=== PATIENT | female | born 1950 | race Caucasian/White ===

== ENCOUNTER → 2016-08-28 | Outpatient (CLI) | payer OTHER, MEDICARE ==
[~2016-08-28] MED LIST: ALBUTEROL0.09 MG/A2 INH; ASPIR-LOW81 MG PO; ASPIRIN325 M2 PO; AVALIDE 12.5 MG1 TA2 PO; B12,B-12,B 12500 MC1 PO; CELEBREX100 MG PO; CELEBREX200 MG PO; CELECOXIB200 M1 PO; CELEXA10 MG PO; CELEXA40 MG PO; CHLORTHALIDONE25 MG PO; COZAAR100 MG PO; COZAAR50 MG PO; DETROL LA4 MG PO; DUONEB 3 MG/3 ML3 M1 NEB; ECOTRIN325 MG PO; EFFEXOR XR150 M1 PO; EFFEXOR XR75 MG PO; FLOVENT 220 M220 MCG INH; LEVAQUIN750 MG PO; LOVASTATIN20 MG PO; LOVASTATIN40 MG PO; LOVENOX40 MG/0.4 SC; MEVACOR PO; NEURONTIN300 MG PO; NITROSTAT0.3 MG SL; NORVASC5 MG PO; PERCOCET 325 MG1 TA8 PO; PRAVASTATIN SOD20 MG PO; PREDNISONE10 MG PO; PREVACID30 M1 PO; PRILOSEC20 M1 PO; PRILOSEC20 MG PO; PROAIR HFA0.09 MG/AC IH; SINGULAIR10 MG PO; SYNTHROID,LEVO75 MCG PO; SYNTHROID0.075 MG PO; TYLENOL325 M1 PO; VENTOLIN0.09 MG/AC INH; VICODIN 5/500 505 MG PO; VICODIN ES 7501 TAB PO; XANAX0.5 MG PO
== END | disposition home or self-care (01) ==
LOC: CARD 02:57
DX: I20.8 Other forms of angina pectoris (principal); R53.81 Other malaise

== ENCOUNTER → 2016-09-07 | Outpatient (CLI) | payer OTHER, MEDICARE ==
[2016-09-07 14:23] LABS: ALBUMIN 3.5 gm/dl (3.1-4.5); ALKALINE PHOSPHATASE 127 U/L (45-117); BASO # 0.1 10*3/uL (0.0-0.1); BASO % 0.9 % (0.0-1.0); BILIRUBIN, TOTAL 0.6 mg/dl (0.2-1.0); BUN 7 mg/dl (7-24); CARBON DIOXIDE 29 mmol/L (21-32); CHLORIDE 106 mmol/L (98-107); EOS # 0.2 10*3/uL (0.0-0.4); EST GLOM FILT AFRICAN AMERICAN > 60 ml/min; GLUCOSE 106 mg/dL (65-99); HEMATOCRIT 43.8 % (37.0-47.0); HEMOGLOBIN 14.5 g/dl (12.0-16.0); LYMPH # 1.5 10*3/uL (1.3-4.4); LYMPH % 21.7 % (27.0-41.0); MEAN CELL VOLUME 85.4 fl (81.0-99.0); MEAN CORPUSCULAR HGB 28.3 pg (27.0-31.0); MEAN CORPUSCULAR HGB CONC 33.1 g/dl (33.0-37.0); MEAN PLATELET VOLUME 9.4 fl (9.6-12.3); MONO # 0.4 10*3/uL (0.1-1.0); MONO % 6.4 % (3.0-9.0); NEUT # 4.6 10*3/uL (2.3-7.9); NEUT % 67.6 % (47.0-73.0); PLATELET COUNT AUTOMATED 269 10*3/uL (130-400); RED BLOOD COUNT 5.13 10*6/uL (4.10-5.10); RED CELL DISTRI WIDTH 14.1 % (0-14.5); SGOT/AST 15 IU/L (3-35); SGPT/ALT 22 U/L (12-78); SODIUM 142 mmol/L (136-145); TOTAL PROTEIN 7.1 gm/dL (6.4-8.2); WHITE BLOOD COUNT 6.8 10*3/uL (4.8-10.8)
== END | disposition home or self-care (01) ==
LOC: LAB 13:23
PROVIDERS: Internal Medicine
DX: A09 Infectious gastroenteritis and colitis, unspecified (principal); R19.7 Diarrhea, unspecified; R11.2 Nausea with vomiting, unspecified; M47.896 Other spondylosis, lumbar region; Z90.49 Acquired absence of other specified parts of digestive tract

== ENCOUNTER → 2016-09-09 | Outpatient (CLI) | payer OTHER, MEDICARE | END | disposition home or self-care (01) | LOC: LAB 15:58 | DX: A09 Infectious gastroenteritis and colitis, unspecified (principal) ==

== ENCOUNTER 2016-10-18 15:03 | Emergency (ER) | payer OTHER, MEDICARE ==
[~2016-10-18] VITALS: Ht 152.4 cm; Wt 106.6 kg
[2016-10-18] MEDS ORDERED: NAPROSYN500 MG PO (17:39)
== END 2016-10-18 21:47 | disposition home or self-care (01) ==
LOC: ED 15:03
DX: M19.042 Primary osteoarthritis, left hand (principal); J44.9 Chronic obstructive pulmonary disease, unspecified; K21.9 Gastro-esophageal reflux disease without esophagitis; I10 Essential (primary) hypertension; I25.2 Old myocardial infarction; M48.06 Spinal stenosis, lumbar region; Z90.710 Acquired absence of both cervix and uterus; Z90.49 Acquired absence of other specified parts of digestive tract; Z86.73 Personal history of transient ischemic attack (TIA), and cerebral infarction without residual deficits; Z98.890 Other specified postprocedural states; Z79.899 Other long term (current) drug therapy; Z91.041 Radiographic dye allergy status

== ENCOUNTER → 2016-11-05 | Outpatient (CLI) | payer OTHER, MEDICARE ==
[~2016-11-05] MED LIST changes: +NAPROSYN500 MG PO
== END | disposition home or self-care (01) ==
LOC: ORTHO 01:52
DX: M47.892 Other spondylosis, cervical region (principal); M48.02 Spinal stenosis, cervical region; M19.022 Primary osteoarthritis, left elbow; M77.9 Enthesopathy, unspecified

== ENCOUNTER → 2016-11-15 | Outpatient (CLI) | payer OTHER, MEDICARE | END | disposition home or self-care (01) | LOC: MRI 12:33 | DX: G56.22 Lesion of ulnar nerve, left upper limb (principal); M25.722 Osteophyte, left elbow; M67.922 Unspecified disorder of synovium and tendon, left upper arm ==

== ENCOUNTER → 2016-11-23 | Outpatient (CLI) | payer OTHER, MEDICARE ==
[2016-11-23 13:02] LABS: BASO # 0.1 10*3/uL (0.0-0.1); BASO % 0.9 % (0.0-1.0); EOS # 0.3 10*3/uL (0.0-0.4); EOS % 4.1 % (1.0-4.0); HEMATOCRIT 41.7 % (37.0-47.0); HEMOGLOBIN 13.5 g/dl (12.0-16.0); LYMPH # 1.9 10*3/uL (1.3-4.4); LYMPH % 27.6 % (27.0-41.0); MEAN CELL VOLUME 85.6 fl (81.0-99.0); MEAN CORPUSCULAR HGB 27.7 pg (27.0-31.0); MEAN CORPUSCULAR HGB CONC 32.4 g/dl (33.0-37.0); MONO # 0.4 10*3/uL (0.1-1.0); MONO % 6.4 % (3.0-9.0); NEUT # 4.2 10*3/uL (2.3-7.9); NEUT % 60.7 % (47.0-73.0); PLATELET COUNT AUTOMATED 214 10*3/uL (130-400); RED BLOOD COUNT 4.87 10*6/uL (4.10-5.10); RED CELL DISTRI WIDTH 14.5 % (0-14.5); WHITE BLOOD COUNT 6.9 10*3/uL (4.8-10.8)
[2016-11-23 13:26] LABS: BILIRUBIN NEGATIVE (NEGATIVE); BLOOD NEGATIVE (NEGATIVE); CLARITY CLEAR (CLEAR); COLOR YELLOW (YELLOW); GLUCOSE NEGATIVE (NEGATIVE); KETONE NEGATIVE (NEGATIVE); LEUKO ESTERASE NEGATIVE (NEGATIVE); NITRITE NEGATIVE (NEGATIVE); PH 6.5 (5.0-9.0); PROTEIN NEGATIVE (NEGATIVE); SPECIFIC GRAVITY <= 1.005 (1.005-1.030); UROBILINOGEN 0.2 E.U./dl (0.2-1.0)
[2016-11-23 13:30] LABS: BUN 10 mg/dl (7-24); CARBON DIOXIDE 28 mmol/L (21-32); CHLORIDE 103 mmol/L (98-107); EST GLOM FILT AFRICAN AMERICAN > 60 ml/min; GLUCOSE 86 mg/dL (65-99); POTASSIUM 3.6 mmol/L (3.5-5.1); SODIUM 141 mmol/L (136-145)
[2016-11-23 14:15] LABS: BACTERIA 1+
[2016-11-23 14:16] LABS: YEAST 1+
== END | disposition home or self-care (01) ==
LOC: LAB 10:47
PROVIDERS: Orthopaedic Surgery
DX: Z01.818 Encounter for other preprocedural examination (principal); G56.02 Carpal tunnel syndrome, left upper limb; J45.909 Unspecified asthma, uncomplicated; J44.9 Chronic obstructive pulmonary disease, unspecified

== ENCOUNTER → 2016-11-28 | Outpatient (CLI) | payer OTHER, MEDICARE ==
[~2016-11-28] MED LIST changes: +PERCOCET 325 MG1 TA6 PO; +ZOFRAN4 MG PO
== END | disposition home or self-care (01) ==
LOC: MRI 11-27 14:49
DX: M47.812 Spondylosis without myelopathy or radiculopathy, cervical region (principal); M48.03 Spinal stenosis, cervicothoracic region; M50.223 Other cervical disc displacement at C6-C7 level; M53.82 Other specified dorsopathies, cervical region; M25.78 Osteophyte, vertebrae

== ENCOUNTER → 2016-11-29 | Day surgery (SDC) | payer OTHER, MEDICARE ==
[2016-11-29] VITALS (19 sets, daily range): BP systolic 95–174; BP diastolic 56–98
[~2016-11-29] VITALS: Ht 152.4 cm; Wt 106.6 kg
== END | disposition home or self-care (01) ==
LOC: SDC 11-23 12:30
DX: G56.22 Lesion of ulnar nerve, left upper limb (principal); E03.9 Hypothyroidism, unspecified; I10 Essential (primary) hypertension; E78.5 Hyperlipidemia, unspecified; K21.9 Gastro-esophageal reflux disease without esophagitis; Z88.8 Allergy status to other drugs, medicaments and biological substances; M19.90 Unspecified osteoarthritis, unspecified site; Z86.73 Personal history of transient ischemic attack (TIA), and cerebral infarction without residual deficits; I25.10 Atherosclerotic heart disease of native coronary artery without angina pectoris; I25.2 Old myocardial infarction; F32.9 Major depressive disorder, single episode, unspecified; Z90.710 Acquired absence of both cervix and uterus; Z96.653 Presence of artificial knee joint, bilateral; Z98.890 Other specified postprocedural states; Z79.899 Other long term (current) drug therapy; G47.30 Sleep apnea, unspecified; J44.9 Chronic obstructive pulmonary disease, unspecified; Z82.49 Family history of ischemic heart disease and other diseases of the circulatory system

== ENCOUNTER → 2017-02-18 | Outpatient (CLI) | payer OTHER | END | disposition home or self-care (01) | LOC: ORTHO 10:06 | DX: M25.462 Effusion, left knee (principal); M25.461 Effusion, right knee; M19.042 Primary osteoarthritis, left hand; M77.02 Medial epicondylitis, left elbow; M81.0 Age-related osteoporosis without current pathological fracture; Z96.651 Presence of right artificial knee joint; Z96.652 Presence of left artificial knee joint ==

== ENCOUNTER → 2017-02-21 | Outpatient (CLI) | payer OTHER ==
[2017-02-21 12:29] LABS: BASO # 0.1 10*3/uL (0.0-0.1); BASO % 1.1 % (0.0-1.0); EOS # 0.3 10*3/uL (0.0-0.4); EOS % 3.8 % (1.0-4.0); HEMATOCRIT 42.5 % (37.0-47.0); HEMOGLOBIN 14.1 g/dl (12.0-16.0); LYMPH # 1.8 10*3/uL (1.3-4.4); LYMPH % 27.4 % (27.0-41.0); MEAN CORPUSCULAR HGB 28.5 pg (27.0-31.0); MEAN CORPUSCULAR HGB CONC 33.2 g/dl (33.0-37.0); MEAN PLATELET VOLUME 9.3 fl (9.6-12.3); MONO # 0.4 10*3/uL (0.1-1.0); MONO % 6.2 % (3.0-9.0); PLATELET COUNT AUTOMATED 267 10*3/uL (130-400); RED BLOOD COUNT 4.94 10*6/uL (4.10-5.10); RED CELL DISTRI WIDTH 13.5 % (0-14.5); WHITE BLOOD COUNT 6.5 10*3/uL (4.8-10.8)
[2017-02-21 12:56] LABS: ALBUMIN 3.5 gm/dl (3.1-4.5); ALKALINE PHOSPHATASE 115 U/L (45-117); BUN 10 mg/dl (7-24); CHLORIDE 104 mmol/L (98-107); CHOLESTEROL 186 mg/dL (<200); HDL CHOLESTEROL 51 mg/dl (40-60); LDL CHOLESTEROL 87 mg/dL (9-159); SGOT/AST 10 IU/L (3-35); SGPT/ALT 14 U/L (12-78); SODIUM 140 mmol/L (136-145); TOTAL PROTEIN 7.2 gm/dL (6.4-8.2); TRIGLYCERIDES 239 mg/dl (<150); VLDL CHOLESTEROL 48 mg/dL (6-40)
[2017-02-21 13:19] LABS: FREE T4 0.79 ng/dl (0.76-1.46)
== END | disposition home or self-care (01) ==
LOC: LAB 12:10
PROVIDERS: Internal Medicine
DX: N18.3 Chronic kidney disease, stage 3 (moderate) (principal); E03.9 Hypothyroidism, unspecified; E78.2 Mixed hyperlipidemia

== ENCOUNTER → 2017-02-28 | Outpatient (CLI) | payer OTHER ==
--- NOTE | ~2017-02-28 | PROC NOTE ---
[place], [place] PROCEDURE NOTE NAME: DANIEL HEALY UNIT #: [id number] ROOM: DOCTOR: JULISA DODD BIRTHDATE: [birth year] DOS: 02/28/2017 MODIFIED BARIUM SWALLOW DOCTOR: Dr. Jeffrey. RADIOLOGIST: Dr. Harris. BACKGROUND INFORMATION: The patient is a 66-year-old female was seen for modified barium swallow. This test was ordered to rule out aspiration. The patient reports that over the past couple of months, she has been choking with liquids mostly, but foods as well. She reports a history of CVAs. She also stated that she feels that she suffered a recent TIA due to right-sided weakness and numbness. Medical history is also significant for HTN and COPD. The patient currently receives a regular diet and thin liquids. She reported respiratory status as with normal limits on this date. She did report that she uses BiPAP at night. For today's assessment, she was alert and able to follow all commands. Oral peripheral examination revealed presence of upper denture. The patient reported it being loose fitting and stated that she was wearing denture cream. Lingual, labial and buccal skills were within normal limits in terms of strength, range of motion and coordination. The patient was able to volitionally cough and swallow without difficulty. METHODS AND MATERIALS USED FOR THE EXAM: The patient was positioned in the lateral plane and examination was viewed under fluoroscopy. The patient was presented with a variety of consistencies to assess swallowing skills including applesauce mixed with barium presented in half teaspoon amounts, barium-coated cookie presented in bite-size piece and thin liquid barium taken both by cup and straw. The patient swallowed in single sip-size amount. ORAL PHASE: Unremarkable. PHARYNGEAL PHASE: The pharyngeal swallow occurred within a timely manner. During the swallow, laryngeal elevation and epiglottic function were adequate. There was no residue in the pharynx post-swallow. When patient consumed thin liquids by straw, there was an incidence of mild transient upper airway penetration that occurred by straw only. No aspiration occurred with any consistency. ESOPHAGEAL PHASE: This phase of the swallow was not formally assessed during this examination. IMPRESSIONS AND RECOMMENDATIONS: Based upon assessment results, this 66-year-old patient presents with swallowing skills that are within functional limits. She was able to tolerate pureed solid and thin liquids. When she consumed thin liquid by straw, there was an incidence of mild transient upper airway penetration occurring. No aspiration occurred with any consistency. Recommend the patient remain on current diet with use of universal safe swallow precautions such as upright positioning during meals, small bites and sips, chewing thoroughly and alternating liquids and solids. Also recommend [place], [place] PROCEDURE NOTE NAME: DANIEL HEALY UNIT #: [id number] ROOM: DOCTOR: JULISA DODD BIRTHDATE: [birth year] single sips when drinking liquid by straw. Follow up therapy is not warranted at this time. The patient was educated on results and recommendations and verbalized understanding. Thank you very much for this referral. Should you have any questions regarding this patient, please contact the speech pathologist at [phone]. JULISA DODD CM:PROCNOTE:PROCEDURE NOTE [id number] JULISA DODD
--- NOTE | ~2017-02-28 | SLPPN ---
[place], [place] CHOIR TEACHER PROGRESS NOTE NAME: DANIEL HEALY UNIT #: [id number] ROOM: DOCTOR: JOHN SEGURA,VIOLET Speech Language Pathology Treatment Note Page 1 1 of Patient Name: DANIEL HEALY Date: 02/28/2017 10:42 AM : 1950 SOC Date: 02/28/2017 [facility] Provider #: [id number] Treating Clinician: CASSIE Hatfield-STANTON Referring Physician: VIOLET LOPEZ Onset Date Description Code Primary Diagnosis: 02/28/2017 R13.10 Dysphagia, unspecified Time In: 09:30 AM Time Out: 10:30 AM CHOIR TEACHER Interventions and CPT Codes Consisted of: CPT Code Modifiers Minutes Units MOTION FLUOROSCOPY/SWALLOW 85641 60 1 Total Minutes: 60 Total Timed Minutes: 0 Total Untimed Minutes: 60 Total Units: 1 Total Timed Units: 0 Total Untimed Units: 1 02/28/2017 10:43:33 AM KHURRAM Hatfield Date/Time State License #: [id number] CM:STANTONPN 1051 1051 [facility]
--- NOTE | ~2017-02-28 | SLPIE ---
[place], [place] COMMERCIAL ESCROW OFFICER INITIAL EVALUATION NAME: DANIEL HEALY UNIT #: [id number] ROOM: DOCTOR: VIOLET LOPEZ MD Speech Language Pathology Initial Evaluation Page 1 1 of Patient Name: DANIEL HEALY Date: 02/28/2017 10:41 AM : 1950 SOC Date: 02/28/2017 Provider: [facility] Provider #: [id number] Treating Clinician: CASSIE Hatfield-STANTON Referring Physician: VIOLET LOPEZ Patient Information Address: [address] [place] [address] Physician: VIOLET LOPEZ Physician #: City, [facility], Zip: [place], [place] [address] Occupation: Unknown # of Approved Visits: 0 Gender: Female [employer] Truck Driver: KAYDEN RYAN Medicare #: [id number] Rehabilitation Information / History Onset Date Code Description Primary Diagnosis: 02/28/2017 R13.10 Dysphagia, unspecified Subjective Comments: Initial evaluation created to initiate the electronic medical record. Please see [facility] for details. Clinical Findings Functional Goals Functional Limitation Reporting Swallowing G8996 - Swallowing functional limitation, current status at therapy episode outset and at reporting intervals Current Status: CI - At least 1 percent but less than 20 percent impaired, limited or restricted G8997 - Swallowing functional limitation, projected goal status, at therapy episode outset, at reporting intervals, and at discharge or to end reporting Goal Status: CI - At least 1 percent but less than 20 percent impaired, limited or restricted G8998 - Swallowing functional limitation, discharge status, at discharge from therapy or to end reporting Discharge Status: CI - At least 1 percent but less than 20 percent impaired, limited or restricted 02/28/2017 10:42:42 AM CASSIE Hatfield-STANTON Date/Time [place], [place] COMMERCIAL ES[employer]OW OFFICER INITIAL EVALUATION NAME: DANIEL HEALY UNIT #: [id number] ROOM: DOCTOR: VIOLET LOPEZ MD [facility] License #: [id number] CM:CATY 44 [facility]
--- NOTE | ~2017-02-28 | SLPPOC ---
[place], [place] CERTIFIED GENETIC COUNSELOR PLAN OF CARE NAME: DANIEL HEALY UNIT #: [id number] ROOM: DOCTOR: VIOLET LOPEZ MD Speech Language Pathology Plan of Care Page 1 1 (Initial Evaluation) of Patient Name: DANIEL HEALY Date: 02/28/2017 10:41 AM : 1950 SOC Date: 02/28/2017 Provider[facility] Provider #: [id number] Treating Clinician: CASSIE Hatfield-CERTIFIED GENETIC COUNSELOR Referring Physician: VIOLET LOPEZ Medicare #: [id number] Visits From SOC: 1 Onset Date Description Code Primary Diagnosis: 02/28/2017 R13.10 Dysphagia, unspecified Subjective Comments: Initial evaluation created to initiate the electronic medical record. Please see [facility] for details. Initial Level Goals Functional Limitation Reporting Swallowing G8996 - Swallowing functional limitation, current status at therapy episode outset and at reporting intervals Current Status: CI - At least 1 percent but less than 20 percent impaired, limited or restricted G8997 - Swallowing functional limitation, projected goal status, at therapy episode outset, at reporting intervals, and at discharge or to end reporting Goal Status: CI - At least 1 percent but less than 20 percent impaired, limited or restricted G8998 - Swallowing functional limitation, discharge status, at discharge from therapy or to end reporting Discharge Status: CI - At least 1 percent but less than 20 percent impaired, limited or restricted 02/28/2017 10:42:42 AM VIOLET LOPEZ Date/Time CASSIE Hatfield-STANTON Date I certify the need for these services furnished under this plan of treatment while under my care. State License #: [id number] CM:SLPPOC 1045 1045 [facility]
--- NOTE | 2017-02-28 10:30 | NUR ---
SPEECH PATHOLOGY Outpatient MBS completed as per orders. Patient was alert and cooperative and reported choking with mostly liquids but foods at times. She stated that this has been occurring for the past couple months. Patient reports a hx of CVAs and stated that she feels she may have suffered a recent TIA due to weakness and numbness on right side. Patient was challenged with puree, solid and thin liquids which were taken by cup and straw. Patient tolerated food and liquids well. When drinking by straw, a mild amount of transient upper airway penetration occurred. No aspiration occurred with this or any other consistency during this exam. Recommend patient remain on current diet with use of universal safe swallow precautions such as upright positioning during meals, small bites/sips, chewing thoroughly and alternating liquid and solid. Also recommend small single sips when drinking liquid by straw. Patient verbalized understanding and agreement of all information provided. Follow up therapy is not warranted at this time. Dictated report to follow. Thank you for this referral. JULISA DODD MS CCC-[employer] D[employer]ICATED TRUCK DRIVER
== END | disposition home or self-care (01) ==
LOC: RAD/SH 09:56
DX: R13.10 Dysphagia, unspecified (principal); I10 Essential (primary) hypertension; J44.9 Chronic obstructive pulmonary disease, unspecified

== ENCOUNTER → 2017-07-12 | Day surgery (SDC) | payer OTHER ==
[~2017-07-12] VITALS: Ht 152.4 cm; Wt 98.0 kg
[~2017-07-12] MED LIST changes: +FENOFIBRATE48 M1 PO; +PROZAC20 MG PO; +SYNTHROID,LEVO88 MCG PO; -SYNTHROID0.075 MG PO
--- NOTE | ~2017-07-12 | PROC NOTE ---
[place], [place] PROCEDURE NOTE NAME: DANIEL HEALY UNIT #: [id number] ROOM: DOCTOR: GIDEON LOPEZ MD BIRTHDATE: [birth year] DOS: 07/12/2017 PREOPERATIVE DIAGNOSES: Abdominal pain, diarrhea. POSTOPERATIVE DIAGNOSIS: Normal colon. PROCEDURE: Colonoscopy. ENDOSCOPIST: Gideon Lopez MD MUSIC REHABILITATION THERAPIST: LUIS FELIPE. ANESTHESIA: MAC. INDICATIONS: This is a 66-year-old lady comes in today for a colonoscopy as a workup for abdominal pain and diarrhea. The procedure and its complications were explained to the patient in detail preoperatively. Complications that were discussed included but were not limited to, bleeding, colon perforation, missed lesions, prolonged pain. She agreed to proceed. DESCRIPTION OF PROCEDURE: After identifying the patient, the patient was brought to the operating suite and laid in the left lateral position. After time-out procedure was called, a digital rectal exam was performed, which was within normal limits. An adult colonoscope was now introduced into the anal canal and advanced sequentially into the rectum, sigmoid colon, descending colon, transverse colon and ascending colon up to the cecum. The prep was found to be within normal limits. Upon reaching the cecum, the scope was withdrawn. Total withdrawal time was approximately 6 minutes and 30 seconds. There were no obvious colonic lesions seen. Upon reaching the rectum, the scope was retroflexed and uncomplicated internal hemorrhoids were encountered. The scope was then withdrawn and the patient was taken to the recovery room in stable fashion. Based on these findings, the patient was recommended to have another colonoscopy in the next 10 years or sooner if she has new symptoms. These findings were discussed with the patient's friend in the recovery room. Gideon Lopez MD CM:PROCNOTE:PROCEDURE NOTE 3 31 GIDEON LOPEZ MD
[2017-07-12 07:15] VITALS: BP 147/93
[2017-07-12 08:53] VITALS: BP 123/75
[2017-07-12 09:08] VITALS: BP 127/81
[2017-07-12 09:22] VITALS: BP 123/68
== END | disposition home or self-care (01) ==
LOC: SDC 06-13 11:00
DX: R10.9 Unspecified abdominal pain (principal); R19.7 Diarrhea, unspecified; I25.2 Old myocardial infarction; I25.10 Atherosclerotic heart disease of native coronary artery without angina pectoris; I10 Essential (primary) hypertension; J44.9 Chronic obstructive pulmonary disease, unspecified; K21.9 Gastro-esophageal reflux disease without esophagitis; F41.9 Anxiety disorder, unspecified; F32.9 Major depressive disorder, single episode, unspecified; E07.89 Other specified disorders of thyroid; G47.30 Sleep apnea, unspecified; Z82.49 Family history of ischemic heart disease and other diseases of the circulatory system; Z90.710 Acquired absence of both cervix and uterus; Z90.49 Acquired absence of other specified parts of digestive tract; Z96.651 Presence of right artificial knee joint

== ENCOUNTER → 2017-10-17 | Outpatient (CLI) | payer OTHER ==
[2017-10-17 10:15] LABS: BASO # 0.1 10*3/uL (0.0-0.1); BASO % 1.5 % (0.0-1.0); EOS # 0.3 10*3/uL (0.0-0.4); EOS % 5.7 % (1.0-4.0); HEMATOCRIT 44.7 % (37.0-47.0); HEMOGLOBIN 14.3 g/dl (12.0-16.0); LYMPH # 1.6 10*3/uL (1.3-4.4); LYMPH % 28.1 % (27.0-41.0); MEAN CELL VOLUME 88.2 fl (81.0-99.0); MEAN CORPUSCULAR HGB 28.2 pg (27.0-31.0); MEAN PLATELET VOLUME 9.9 fl (9.6-12.3); MONO # 0.3 10*3/uL (0.1-1.0); MONO % 5.7 % (3.0-9.0); NEUT # 3.4 10*3/uL (2.3-7.9); NEUT % 58.7 % (47.0-73.0); PLATELET COUNT AUTOMATED 246 10*3/uL (130-400); RED BLOOD COUNT 5.07 10*6/uL (4.10-5.10); RED CELL DISTRI WIDTH 14.7 % (0-14.5); WHITE BLOOD COUNT 5.8 10*3/uL (4.8-10.8)
[2017-10-17 10:19] LABS: ALBUMIN 3.7 gm/dl (3.1-4.5); ALKALINE PHOSPHATASE 94 U/L (45-117); BUN 14 mg/dl (7-24); CHLORIDE 108 mmol/L (98-107); CHOLESTEROL 178 mg/dL (<200); CREATININE 0.99 mg/dL (0.55-1.02); HDL CHOLESTEROL 51 mg/dl (40-60); LDL CHOLESTEROL 93 mg/dL (9-159); POTASSIUM 3.7 mmol/L (3.5-5.1); SGOT/AST 11 IU/L (3-35); SGPT/ALT 18 U/L (12-78); SODIUM 141 mmol/L (136-145); TOTAL PROTEIN 7.1 gm/dL (6.4-8.2); TRIGLYCERIDES 170 mg/dl (<150); VLDL CHOLESTEROL 34 mg/dL (6-40)
== END | disposition home or self-care (01) ==
LOC: LAB 09:20 → MAMMO 10:40
PROVIDERS: Internal Medicine
DX: Z12.31 Encounter for screening mammogram for malignant neoplasm of breast (principal); Z13.820 Encounter for screening for osteoporosis; N18.3 Chronic kidney disease, stage 3 (moderate); E03.9 Hypothyroidism, unspecified; E78.2 Mixed hyperlipidemia; R29.890 Loss of height; Z78.0 Asymptomatic menopausal state

== ENCOUNTER → 2017-11-01 | Outpatient (CLI) | payer OTHER | END | disposition home or self-care (01) | LOC: LAB 10:39 | DX: D64.9 Anemia, unspecified (principal) ==

== ENCOUNTER → 2017-11-25 | Outpatient (CLI) | payer OTHER | END | disposition home or self-care (01) | LOC: RAD 11:30 | DX: M51.37 Other intervertebral disc degeneration, lumbosacral region (principal); M43.16 Spondylolisthesis, lumbar region ==

== ENCOUNTER → 2018-03-26 | Outpatient (CLI) | payer OTHER ==
[2018-03-26 15:33] LABS: BASO # 0.1 10*3/uL (0.0-0.1); BASO % 1.2 % (0.0-1.0); EOS # 0.4 10*3/uL (0.0-0.4); EOS % 4.9 % (1.0-4.0); HEMATOCRIT 46.1 % (37.0-47.0); HEMOGLOBIN 14.8 g/dl (12.0-16.0); LYMPH # 2.2 10*3/uL (1.3-4.4); LYMPH % 29.6 % (27.0-41.0); MEAN CORPUSCULAR HGB 28.2 pg (27.0-31.0); MEAN CORPUSCULAR HGB CONC 32.1 g/dl (33.0-37.0); MEAN PLATELET VOLUME 9.6 fl (9.6-12.3); MONO # 0.4 10*3/uL (0.1-1.0); MONO % 5.7 % (3.0-9.0); NEUT # 4.4 10*3/uL (2.3-7.9); NEUT % 58.3 % (47.0-73.0); PLATELET COUNT AUTOMATED 255 10*3/uL (130-400); RED BLOOD COUNT 5.24 10*6/uL (4.10-5.10); RED CELL DISTRI WIDTH 13.8 % (0-14.5); WHITE BLOOD COUNT 7.5 10*3/uL (4.8-10.8)
[2018-03-26 16:02] LABS: URIC ACID 5.6 mg/dL (2.6-6.0)
[2018-03-26 16:07] LABS: THYROID STIM HORMONE (HS) 0.141 uIU/ml (0.358-4.75)
[2018-03-27 07:11] LABS: RHEUMATOID ARTHRITIS FACTOR <10.0 IU/mL (0.0-13.9)
== END | disposition home or self-care (01) ==
LOC: ORTHO 01:28
PROVIDERS: Orthopaedic Surgery
DX: M19.041 Primary osteoarthritis, right hand (principal); Z79.899 Other long term (current) drug therapy

== ENCOUNTER → 2018-08-12 | Outpatient (CLI) | payer OTHER | END | disposition home or self-care (01) | LOC: RAD 13:57 | DX: M47.812 Spondylosis without myelopathy or radiculopathy, cervical region (principal); M50.321 Other cervical disc degeneration at C4-C5 level; G56.90 Unspecified mononeuropathy of unspecified upper limb; M79.641 Pain in right hand; M79.601 Pain in right arm; M79.602 Pain in left arm; M79.642 Pain in left hand ==

== ENCOUNTER → 2018-08-22 | Outpatient (CLI) | payer OTHER | END | disposition home or self-care (01) | LOC: MRI 08-20 14:00 | DX: M47.892 Other spondylosis, cervical region (principal); G56.90 Unspecified mononeuropathy of unspecified upper limb; M12.88 Other specific arthropathies, not elsewhere classified, other specified site; M25.78 Osteophyte, vertebrae ==

== ENCOUNTER → 2018-08-28 | Outpatient (CLI) | payer OTHER | END | disposition home or self-care (01) | LOC: CARD 11:29 | DX: R06.09 Other forms of dyspnea (principal) ==

== ENCOUNTER → 2018-10-09 | Outpatient (CLI) | payer OTHER ==
[2018-10-09 15:04] LABS: THYROID STIM HORMONE (HS) 0.313 uIU/ml (0.358-4.75)
[2018-10-10 08:13] LABS: IMMUNOGLOBULIN G, QNT 750 mg/dL (700-1600); IMMUNOGLOBULIN M, QNT 39 mg/dL (26-217)
[2018-10-14 14:06] LABS: METHYLMALONIC ACID 489 nmol/L (0-378)
== END | disposition home or self-care (01) ==
LOC: LAB 13:59
PROVIDERS: Psychiatry & Neurology Neurology
DX: G62.9 Polyneuropathy, unspecified (principal); G56.23 Lesion of ulnar nerve, bilateral upper limbs; I10 Essential (primary) hypertension; R20.3 Hyperesthesia; R20.0 Anesthesia of skin; R20.2 Paresthesia of skin; Z79.899 Other long term (current) drug therapy; Z11.59 Encounter for screening for other viral diseases

== ENCOUNTER → 2020-02-12 | Outpatient (CLI) | payer OTHER | END | disposition home or self-care (01) | LOC: US 10:12 | PROVIDERS: ATTEND Physician Assistant | DX: I65.23 Occlusion and stenosis of bilateral carotid arteries (principal); I63.312 Cerebral infarction due to thrombosis of left middle cerebral artery; R42 Dizziness and giddiness; J44.1 Chronic obstructive pulmonary disease with (acute) exacerbation; I10 Essential (primary) hypertension ==

== ENCOUNTER → 2020-09-06 | Outpatient (CLI) | payer OTHER ==
[2020-09-06 13:01] LABS: CREATININE 1.05 mg/dL (0.55-1.02)
== END | disposition home or self-care (01) ==
LOC: LAB 00:28 → CT 13:00 → LAB 13:00
PROVIDERS: ATTEND Surgery
DX: K21.9 Gastro-esophageal reflux disease without esophagitis (principal); R10.9 Unspecified abdominal pain

== ENCOUNTER → 2020-09-26 | Day surgery (SDC) | payer OTHER ==
[~2020-09-26] VITALS: Ht 152.4 cm; Wt 99.8 kg
[~2020-09-26] MED LIST changes: +CARAFATE1 G1 PO; +LIPITOR40 MG PO
[2020-09-26 07:24] VITALS: BP 157/101
[2020-09-26 08:25] VITALS: BP 141/83
[2020-09-26 08:40] VITALS: BP 152/85
[2020-09-26 08:55] VITALS: BP 156/86
== END | disposition home or self-care (01) ==
LOC: SDC 09-22 11:00
PROVIDERS: ATTEND Surgery
DX: R10.9 Unspecified abdominal pain (principal); K21.9 Gastro-esophageal reflux disease without esophagitis; K29.50 Unspecified chronic gastritis without bleeding; I10 Essential (primary) hypertension; E03.9 Hypothyroidism, unspecified; E78.5 Hyperlipidemia, unspecified; F32.9 Major depressive disorder, single episode, unspecified; Z86.73 Personal history of transient ischemic attack (TIA), and cerebral infarction without residual deficits; I25.10 Atherosclerotic heart disease of native coronary artery without angina pectoris; Z90.49 Acquired absence of other specified parts of digestive tract; Z98.890 Other specified postprocedural states; J44.9 Chronic obstructive pulmonary disease, unspecified; F41.9 Anxiety disorder, unspecified; F17.210 Nicotine dependence, cigarettes, uncomplicated; Z90.710 Acquired absence of both cervix and uterus; Z91.048 Other nonmedicinal substance allergy status

== ENCOUNTER → 2021-02-06 | Outpatient (CLI) | payer OTHER ==
[2021-02-06 12:40] LABS: BASO # 0.1 10*3/uL (0.0-0.1); BASO % 0.9 % (0.0-1.0); EOS # 0.4 10*3/uL (0.0-0.4); EOS % 6.1 % (1.0-4.0); HEMATOCRIT 44.2 % (37.0-47.0); LYMPH # 1.4 10*3/uL (1.3-4.4); MEAN CORPUSCULAR HGB 27.6 pg (27.0-31.0); MEAN CORPUSCULAR HGB CONC 31.7 g/dl (33.0-37.0); MEAN PLATELET VOLUME 9.4 fl (9.6-12.3); MONO # 0.5 10*3/uL (0.1-1.0); MONO % 6.7 % (3.0-9.0); NEUT # 4.6 10*3/uL (2.3-7.9); PLATELET COUNT AUTOMATED 229 10*3/uL (130-400); RED BLOOD COUNT 5.08 10*6/uL (4.10-5.10); RED CELL DISTRI WIDTH 14.2 % (0-14.5); WHITE BLOOD COUNT 6.9 10*3/uL (4.8-10.8)
[2021-02-06 13:01] LABS: ALBUMIN 3.6 gm/dl (3.1-4.5); ALKALINE PHOSPHATASE 103 U/L (45-117); BUN 14 mg/dl (7-24); CHLORIDE 107 mmol/L (98-107); CREATININE 1.04 mg/dL (0.55-1.02); SGOT/AST 10 IU/L (3-35); SGPT/ALT 14 U/L (12-78); SODIUM 139 mmol/L (136-145); TOTAL PROTEIN 6.8 gm/dL (6.4-8.2)
[2021-02-06 13:18] LABS: BILIRUBIN Negative (Negative); BLOOD Negative (Negative); CLARITY Clear (Clear); COLOR Yellow (Yellow); GLUCOSE Negative (Negative); KETONE Negative (Negative); LEUKO ESTERASE Negative (Negative); NITRITE Negative (Negative); PH 5.5 (4.5-8.0); UROBILINOGEN 0.2 E.U./dl (0.0-1.0)
== END | disposition home or self-care (01) ==
LOC: LAB 12:14 → CT 13:00
PROVIDERS: ATTEND Urology
DX: N39.0 Urinary tract infection, site not specified (principal); I10 Essential (primary) hypertension; M51.36 Other intervertebral disc degeneration, lumbar region

== ENCOUNTER → 2021-10-02 | Outpatient (CLI) | payer OTHER ==
[~2021-10-02] MED LIST changes: +MYRBETRIQ25 M1 PO; +VESICARE5 MG PO
== END | disposition home or self-care (01) ==
LOC: CARD 03:24
PROVIDERS: ATTEND Internal Medicine Cardiovascular Disease
DX: R07.89 Other chest pain (principal); R06.02 Shortness of breath; R06.00 Dyspnea, unspecified; R53.83 Other fatigue; E78.5 Hyperlipidemia, unspecified

== ENCOUNTER → 2021-11-23 | Outpatient (CLI) | payer OTHER ==
[~2021-11-23] MED LIST changes: +ASPIRIN ADULT L81 M1 PO; +LEVOFLOXACIN750 M2 PO; +PROTONIX40 MG PO; +VITAMIN D350 MC2 PO
== END | disposition home or self-care (01) ==
LOC: MAMMO 11:07
PROVIDERS: ATTEND Family Medicine
DX: Z12.31 Encounter for screening mammogram for malignant neoplasm of breast (principal)

== ENCOUNTER 2021-11-26 18:58 | Inpatient (IN) | payer OTHER ==
[~2021-11-26] VITALS: Ht 152.4 cm; Wt 101.6 kg
[2021-11-26 19:12] VITALS: BP 118/77
[2021-11-26 19:38] LABS: BASO % 0.4 % (0.0-1.0); EOS # 0.2 10*3/uL (0.0-0.4); EOS % 2.2 % (1.0-4.0); HEMATOCRIT 41.2 % (37.0-47.0); LYMPH % 12.5 % (27.0-41.0); MEAN CELL VOLUME 84.4 fl (81.0-99.0); MEAN CORPUSCULAR HGB 27.7 pg (27.0-31.0); MEAN CORPUSCULAR HGB CONC 32.8 g/dl (33.0-37.0); MEAN PLATELET VOLUME 8.9 fl (9.6-12.3); MONO # 0.9 10*3/uL (0.1-1.0); MONO % 10.9 % (3.0-9.0); NEUT # 6.1 10*3/uL (2.3-7.9); NEUT % 73.8 % (47.0-73.0); PLATELET COUNT AUTOMATED 146 10*3/uL (130-400); RED BLOOD COUNT 4.88 10*6/uL (4.10-5.10); WHITE BLOOD COUNT 8.3 10*3/uL (4.8-10.8)
[2021-11-26 19:50] LABS: ACT PARTIAL THROMBO TIME 27.6 SECONDS (20.0-32.1); INTERNATIONAL NORM RATIO 0.9 (2.0-3.5)
[2021-11-26 19:54] LABS: ALKALINE PHOSPHATASE 89 U/L (45-117); BUN 8 mg/dl (7-24); CHLORIDE 103 mmol/L (98-107); SGOT/AST 9 IU/L (3-35); SGPT/ALT 11 U/L (12-78); SODIUM 136 mmol/L (136-145); TOTAL PROTEIN 6.6 gm/dL (6.4-8.2)
[2021-11-26 22:39] VITALS: BP 118/70; BP 90/60
[2021-11-26 23:19] VITALS: BP 110/71
[2021-11-27 01:10] VITALS: BP 108/70
[2021-11-27 01:20] VITALS: BP 124/74
[2021-11-27] MEDS ORDERED: VESICARE5 MG PO (04:30)
[2021-11-27] MEDS ORDERED: MYRBETRIQ25 M1 PO (04:32)
[2021-11-27 05:54] LABS: BUN 9 mg/dl (7-24); CHLORIDE 106 mmol/L (98-107); CHOLESTEROL 143 mg/dL (<200); POTASSIUM 3.8 mmol/L (3.5-5.1); SGOT/AST 10 IU/L (3-35); SGPT/ALT 11 U/L (12-78); SODIUM 139 mmol/L (136-145); TOTAL PROTEIN 6.4 gm/dL (6.4-8.2); TRIGLYCERIDES 96 mg/dl (<150)
[2021-11-27 06:00] LABS: ALKALINE PHOSPHATASE 86 U/L (45-117); FREE T4 1.22 ng/dl (0.76-1.46); LDL CHOLESTEROL 68 mg/dL (9-159)
[2021-11-27 06:51] LABS: BILIRUBIN Negative (Negative); BLOOD Negative (Negative); CLARITY Clear (Clear); COLOR Yellow (Yellow); GLUCOSE Negative (Negative); KETONE Trace (Negative); LEUKO ESTERASE Negative (Negative); NITRITE Negative (Negative); PH 6.5 (4.5-8.0)
[2021-11-27 07:08] LABS: BASO % 0.3 % (0.0-1.0); EOS # 0.1 10*3/uL (0.0-0.4); EOS % 0.6 % (1.0-4.0); HEMATOCRIT 40.9 % (37.0-47.0); LYMPH # 0.6 10*3/uL (1.3-4.4); LYMPH % 6.2 % (27.0-41.0); MEAN CELL VOLUME 86.5 fl (81.0-99.0); MEAN CORPUSCULAR HGB 27.5 pg (27.0-31.0); MEAN CORPUSCULAR HGB CONC 31.8 g/dl (33.0-37.0); MEAN PLATELET VOLUME 9.7 fl (9.6-12.3); MONO # 0.6 10*3/uL (0.1-1.0); NEUT # 8.3 10*3/uL (2.3-7.9); NEUT % 86.4 % (47.0-73.0); PLATELET COUNT AUTOMATED 164 10*3/uL (130-400); RED BLOOD COUNT 4.73 10*6/uL (4.10-5.10); RED CELL DISTRI WIDTH 14.9 % (0-14.5); WHITE BLOOD COUNT 9.6 10*3/uL (4.8-10.8)
[2021-11-27 07:20] LABS: BACTERIA 1+
[2021-11-27 08:00] VITALS: BP 113/78
[2021-11-27 12:00] VITALS: BP 102/70
[2021-11-27 16:00] VITALS: BP 107/44
[2021-11-27 20:00] VITALS: BP 120/67
[2021-11-28] VITALS: BP 118/61
[2021-11-28 04:00] VITALS: BP 129/73
[2021-11-28 05:15] LABS: BUN 12 mg/dl (7-24); CHLORIDE 110 mmol/L (98-107); CREATININE 0.87 mg/dL (0.55-1.02); POTASSIUM 3.8 mmol/L (3.5-5.1); SODIUM 139 mmol/L (136-145)
[2021-11-28 06:09] LABS: HEMATOCRIT 36.7 % (37.0-47.0); MEAN CELL VOLUME 87.8 fl (81.0-99.0); MEAN CORPUSCULAR HGB 27.3 pg (27.0-31.0); MEAN CORPUSCULAR HGB CONC 31.1 g/dl (33.0-37.0); PLATELET COUNT AUTOMATED 189 10*3/uL (130-400); RED BLOOD COUNT 4.18 10*6/uL (4.10-5.10); RED CELL DISTRI WIDTH 14.7 % (0-14.5); WHITE BLOOD COUNT 11.3 10*3/uL (4.8-10.8)
[2021-11-28 06:14] LABS: MANUAL DIFF REFLEX YES
[2021-11-28 06:44] LABS: PLATELET SUFFICIENCY NORMAL (NORMAL); POLYCHROMASIA SLIGHT; TOTAL CELLS COUNTED 100 #CELLS
[2021-11-28 06:45] LABS: BURR CELLS MODERATE
[2021-11-28 08:00] VITALS: BP 120/60
[2021-11-28 12:00] VITALS: BP 117/67
[2021-11-28 16:00] VITALS: BP 110/59
[2021-11-28 20:00] VITALS: BP 119/65
[2021-11-29] VITALS: BP 113/50
[2021-11-29 05:14] LABS: BUN 13 mg/dl (7-24); CHLORIDE 108 mmol/L (98-107); CREATININE 0.89 mg/dL (0.55-1.02); POTASSIUM 3.4 mmol/L (3.5-5.1); SODIUM 140 mmol/L (136-145)
[2021-11-29 06:24] LABS: BASO % 0.1 % (0.0-1.0); HEMATOCRIT 32.9 % (37.0-47.0); LYMPH # 0.9 10*3/uL (1.3-4.4); LYMPH % 10.6 % (27.0-41.0); MEAN CELL VOLUME 87.3 fl (81.0-99.0); MEAN CORPUSCULAR HGB 28.1 pg (27.0-31.0); MEAN CORPUSCULAR HGB CONC 32.2 g/dl (33.0-37.0); MEAN PLATELET VOLUME 10.2 fl (9.6-12.3); MONO # 0.6 10*3/uL (0.1-1.0); MONO % 7.2 % (3.0-9.0); NEUT # 7.3 10*3/uL (2.3-7.9); NEUT % 81.8 % (47.0-73.0); PLATELET COUNT AUTOMATED 225 10*3/uL (130-400); RED BLOOD COUNT 3.77 10*6/uL (4.10-5.10); WHITE BLOOD COUNT 8.9 10*3/uL (4.8-10.8)
[2021-11-29 08:00] VITALS: BP 109/50
[2021-11-29 12:00] VITALS: BP 115/52
[2021-11-29 16:00] VITALS: BP 101/58
[2021-11-29 20:00] VITALS: BP 129/78
[2021-11-30] VITALS: BP 118/71
[2021-11-30 06:18] LABS: BASO % 0.2 % (0.0-1.0); EOS % 0.2 % (1.0-4.0); HEMATOCRIT 34.6 % (37.0-47.0); LYMPH # 1.1 10*3/uL (1.3-4.4); MEAN CELL VOLUME 86.9 fl (81.0-99.0); MEAN CORPUSCULAR HGB 27.4 pg (27.0-31.0); MEAN CORPUSCULAR HGB CONC 31.5 g/dl (33.0-37.0); MEAN PLATELET VOLUME 9.3 fl (9.6-12.3); MONO # 0.5 10*3/uL (0.1-1.0); MONO % 7.7 % (3.0-9.0); NEUT # 4.8 10*3/uL (2.3-7.9); NEUT % 73.8 % (47.0-73.0); PLATELET COUNT AUTOMATED 253 10*3/uL (130-400); RED BLOOD COUNT 3.98 10*6/uL (4.10-5.10); WHITE BLOOD COUNT 6.5 10*3/uL (4.8-10.8)
[2021-11-30 06:37] LABS: BUN 12 mg/dl (7-24); CHLORIDE 107 mmol/L (98-107); CREATININE 0.85 mg/dL (0.55-1.02); POTASSIUM 3.7 mmol/L (3.5-5.1); SODIUM 140 mmol/L (136-145)
[2021-11-30 08:00] VITALS: BP 128/68
[2021-11-30 12:00] VITALS: BP 126/69
[2021-11-30 16:00] VITALS: BP 108/67
[2021-11-30 20:00] VITALS: BP 113/55
[2021-12-01] VITALS: BP 116/72
[2021-12-01 08:00] VITALS: BP 112/50
[2021-12-01] MEDS ORDERED: XARELTO20 M1 PO (10:40)
[2021-12-01] MEDS ORDERED: LEVOFLOXACIN750 M2 PO (11:31)
[2021-12-01] MEDS ORDERED: PROAIR HFA8.5 GM INH (11:34)
[2021-12-01 12:00] VITALS: BP 124/78
== END 2021-12-01 13:50 | disposition home health service (06) | DRG 871 ==
LOC: ED 18:58 → ICCU 11-27 00:25 → EDHOLD 11-27 00:25 → 4E 11-27 00:25 → 5E 11-27 00:44 → 4E 11-27 01:05 → ICCU 11-27 16:26 → 4E 11-29 09:50
PROVIDERS: Family Medicine; Internal Medicine; Student in an Organized Health Care Education/Training Program; ADMIT Emergency Medicine; ATTEND Emergency Medicine
DX: A41.9 Sepsis, unspecified organism (principal); J96.21 Acute and chronic respiratory failure with hypoxia; E43 Unspecified severe protein-calorie malnutrition; J15.6 Pneumonia due to other Gram-negative bacteria; I26.94 Multiple subsegmental thrombotic pulmonary emboli without acute cor pulmonale; J44.1 Chronic obstructive pulmonary disease with (acute) exacerbation; R04.2 Hemoptysis; Z68.41 Body mass index [BMI] 40.0-44.9, adult; J44.0 Chronic obstructive pulmonary disease with (acute) lower respiratory infection; M19.90 Unspecified osteoarthritis, unspecified site; F32.9 Major depressive disorder, single episode, unspecified; K21.9 Gastro-esophageal reflux disease without esophagitis; Z20.822 Contact with and (suspected) exposure to COVID-19; Z96.653 Presence of artificial knee joint, bilateral; N18.31 Chronic kidney disease, stage 3a; R73.9 Hyperglycemia, unspecified; E03.9 Hypothyroidism, unspecified; I12.9 Hypertensive chronic kidney disease with stage 1 through stage 4 chronic kidney disease, or unspecified chronic kidney disease; I25.10 Atherosclerotic heart disease of native coronary artery without angina pectoris; E66.01 Morbid (severe) obesity due to excess calories; G47.33 Obstructive sleep apnea (adult) (pediatric); E55.9 Vitamin D deficiency, unspecified; D64.9 Anemia, unspecified; Z91.041 Radiographic dye allergy status; Z90.49 Acquired absence of other specified parts of digestive tract; Z82.49 Family history of ischemic heart disease and other diseases of the circulatory system; Z90.710 Acquired absence of both cervix and uterus; Z86.73 Personal history of transient ischemic attack (TIA), and cerebral infarction without residual deficits; I25.2 Old myocardial infarction

== ENCOUNTER → 2021-12-08 | Outpatient (CLI) | payer OTHER ==
[~2021-12-08] MED LIST changes: +PROAIR HFA8.5 GM INH; +XARELTO20 M1 PO
[2021-12-08 13:12] LABS: HEMATOCRIT 40.4 % (37.0-47.0); MANUAL DIFF REFLEX YES; MEAN CELL VOLUME 86.9 fl (81.0-99.0); MEAN CORPUSCULAR HGB 27.5 pg (27.0-31.0); MEAN CORPUSCULAR HGB CONC 31.7 g/dl (33.0-37.0); PLATELET COUNT AUTOMATED 296 10*3/uL (130-400); RED BLOOD COUNT 4.65 10*6/uL (4.10-5.10); RED CELL DISTRI WIDTH 15.6 % (0-14.5); WHITE BLOOD COUNT 10.3 10*3/uL (4.8-10.8)
[2021-12-08 13:31] LABS: BASOPHILS 3 % (0-1); TOTAL CELLS COUNTED 100 #CELLS
[2021-12-08 13:32] LABS: BURR CELLS FEW; OVALOCYTES FEW; PLATELET SUFFICIENCY NORMAL (NORMAL); POLYCHROMASIA SLIGHT; TOXIC GRANULATION SLIGHT
[2021-12-08 13:41] LABS: BUN 8 mg/dl (7-24); CHLORIDE 103 mmol/L (98-107); CREATININE 0.96 mg/dL (0.55-1.02); POTASSIUM 3.2 mmol/L (3.5-5.1); SODIUM 140 mmol/L (136-145)
== END | disposition home or self-care (01) ==
LOC: LAB 12:31
PROVIDERS: ATTEND Family Medicine
DX: I13.10 Hypertensive heart and chronic kidney disease without heart failure, with stage 1 through stage 4 chronic kidney disease, or unspecified chronic kidney disease (principal); I25.84 Coronary atherosclerosis due to calcified coronary lesion; I25.10 Atherosclerotic heart disease of native coronary artery without angina pectoris; J44.1 Chronic obstructive pulmonary disease with (acute) exacerbation; I26.99 Other pulmonary embolism without acute cor pulmonale; N32.81 Overactive bladder; N18.30 Chronic kidney disease, stage 3 unspecified; I51.0 Cardiac septal defect, acquired; E55.9 Vitamin D deficiency, unspecified; I70.0 Atherosclerosis of aorta; E78.2 Mixed hyperlipidemia; E03.9 Hypothyroidism, unspecified; J96.11 Chronic respiratory failure with hypoxia; Z79.899 Other long term (current) drug therapy; Z90.49 Acquired absence of other specified parts of digestive tract

== ENCOUNTER → 2022-10-03 | Outpatient (CLI) | payer OTHER | END | disposition home or self-care (01) | LOC: LAB 14:12 | PROVIDERS: ATTEND Internal Medicine Cardiovascular Disease | DX: I10 Essential (primary) hypertension (principal); R06.02 Shortness of breath ==

== ENCOUNTER 2022-12-21 13:09 | Emergency (ER) | payer OTHER ==
[~2022-12-21] VITALS: Ht 149.8 cm; Wt 102.1 kg
[2022-12-21 13:41] LABS: BILIRUBIN Negative (Negative); BLOOD Negative (Negative); CLARITY Clear (Clear); COLOR Yellow (Yellow); GLUCOSE Negative (Negative); KETONE Negative (Negative); LEUKO ESTERASE Negative (Negative); NITRITE Negative (Negative); PH 5.5 (4.5-8.0); UROBILINOGEN 0.2 E.U./dl (0.0-1.0)
[2022-12-21 14:14] LABS: BASO # 0.1 10*3/uL (0.0-0.1); BASO % 0.9 % (0.0-1.0); EOS # 0.3 10*3/uL (0.0-0.4); EOS % 3.6 % (1.0-4.0); HEMATOCRIT 42.9 % (37.0-47.0); LYMPH # 1.6 10*3/uL (1.3-4.4); LYMPH % 21.6 % (27.0-41.0); MEAN CELL VOLUME 86.5 fl (81.0-99.0); MEAN CORPUSCULAR HGB 27.8 pg (27.0-31.0); MEAN CORPUSCULAR HGB CONC 32.2 g/dl (33.0-37.0); MEAN PLATELET VOLUME 9.5 fl (9.6-12.3); MONO # 0.5 10*3/uL (0.1-1.0); MONO % 6.9 % (3.0-9.0); NEUT # 5.1 10*3/uL (2.3-7.9); NEUT % 66.9 % (47.0-73.0); PLATELET COUNT AUTOMATED 232 10*3/uL (130-400); RED BLOOD COUNT 4.96 10*6/uL (4.10-5.10); RED CELL DISTRI WIDTH 14.6 % (0-14.5); WHITE BLOOD COUNT 7.6 10*3/uL (4.8-10.8)
[2022-12-21 14:20] LABS: BACTERIA TRACE
[2022-12-21 14:21] LABS: RBC 0-2 rbc/hpf (0-2); WBC 0-2 wbc/hpf (0-5)
[2022-12-21 14:34] LABS: ACT PARTIAL THROMBO TIME 31.9 SECONDS (20.0-32.1)
[2022-12-21 14:43] LABS: ALKALINE PHOSPHATASE 120 U/L (46-116); BUN 8 mg/dl (9-23); CHLORIDE 105 mmol/L (98-107); LIPASE 31 U/L (12-53); SGPT/ALT < 7 U/L (10-49); TOTAL PROTEIN 6.8 gm/dL (6.0-8.0)
[2022-12-21] MEDS ORDERED: MELOXICAM15 MG PO (17:12)
== END 2022-12-21 17:21 | disposition home or self-care (01) ==
LOC: ED 13:09
PROVIDERS: Internal Medicine
DX: R07.1 Chest pain on breathing (principal); M54.50 Low back pain, unspecified; R07.81 Pleurodynia; F17.200 Nicotine dependence, unspecified, uncomplicated; Z79.2 Long term (current) use of antibiotics; Z79.899 Other long term (current) drug therapy; Z79.82 Long term (current) use of aspirin; Z98.890 Other specified postprocedural states; Z90.711 Acquired absence of uterus with remaining cervical stump; Z96.653 Presence of artificial knee joint, bilateral; Z98.61 Coronary angioplasty status; Z90.89 Acquired absence of other organs; Z90.49 Acquired absence of other specified parts of digestive tract; Z86.718 Personal history of other venous thrombosis and embolism; Z86.711 Personal history of pulmonary embolism

== ENCOUNTER → 2023-01-03 | Outpatient (CLI) | payer OTHER ==
[~2023-01-03] MED LIST changes: +MELOXICAM15 MG PO
== END | disposition home or self-care (01) ==
LOC: CT 00:33
PROVIDERS: ATTEND Family Medicine
DX: N28.89 Other specified disorders of kidney and ureter (principal); M47.816 Spondylosis without myelopathy or radiculopathy, lumbar region; M51.34 Other intervertebral disc degeneration, thoracic region; M51.36 Other intervertebral disc degeneration, lumbar region; I70.0 Atherosclerosis of aorta; I25.10 Atherosclerotic heart disease of native coronary artery without angina pectoris

== ENCOUNTER 2023-01-15 15:59 | Emergency (ER) | payer OTHER ==
[~2023-01-15] VITALS: Ht 149.8 cm; Wt 102.1 kg
[2023-01-15 16:52] LABS: BILIRUBIN Negative (Negative); BLOOD Negative (Negative); CLARITY Clear (Clear); COLOR Yellow (Yellow); GLUCOSE Negative (Negative); KETONE Negative (Negative); LEUKO ESTERASE Negative (Negative); NITRITE Negative (Negative); PH 5.5 (4.5-8.0); SPECIFIC GRAVITY 1.015 (1.001-1.030); UROBILINOGEN 0.2 E.U./dl (0.0-1.0)
[2023-01-15 16:56] LABS: BASO # 0.1 10*3/uL (0.0-0.1); BASO % 1.1 % (0.0-1.0); EOS # 0.3 10*3/uL (0.0-0.4); EOS % 3.8 % (1.0-4.0); HEMATOCRIT 41.9 % (37.0-47.0); LYMPH # 1.7 10*3/uL (1.3-4.4); LYMPH % 22.9 % (27.0-41.0); MEAN CELL VOLUME 84.6 fl (81.0-99.0); MEAN CORPUSCULAR HGB 27.3 pg (27.0-31.0); MEAN CORPUSCULAR HGB CONC 32.2 g/dl (33.0-37.0); MEAN PLATELET VOLUME 8.9 fl (9.6-12.3); MONO # 0.5 10*3/uL (0.1-1.0); MONO % 7.3 % (3.0-9.0); NEUT # 4.8 10*3/uL (2.3-7.9); NEUT % 64.8 % (47.0-73.0); PLATELET COUNT AUTOMATED 206 10*3/uL (130-400); RED BLOOD COUNT 4.95 10*6/uL (4.10-5.10); RED CELL DISTRI WIDTH 14.6 % (0-14.5); WHITE BLOOD COUNT 7.4 10*3/uL (4.8-10.8)
[2023-01-15 17:14] LABS: ALKALINE PHOSPHATASE 107 U/L (46-116); BUN 10 mg/dl (9-23); CHLORIDE 107 mmol/L (98-107); LIPASE 31 U/L (12-53); POTASSIUM 4.1 mmol/L (3.4-5.1); TOTAL PROTEIN 6.6 gm/dL (6.0-8.0)
[2023-01-15 17:15] LABS: SGPT/ALT < 7 U/L (10-49)
[2023-01-15 17:15] LABS: RBC 0-2 rbc/hpf (0-2); WBC 0-2 wbc/hpf (0-5)
[2023-01-15] MEDS ORDERED: CYCLOBENZAPRINE10 MG PO (17:30)
== END 2023-01-15 17:34 | disposition home or self-care (01) ==
LOC: ED 15:59
PROVIDERS: Physician Assistant Medical
DX: S23.41XD Sprain of ribs, subsequent encounter (principal); I25.2 Old myocardial infarction; J44.9 Chronic obstructive pulmonary disease, unspecified; K21.9 Gastro-esophageal reflux disease without esophagitis; I10 Essential (primary) hypertension; F41.9 Anxiety disorder, unspecified; F32.A Depression, unspecified; Z90.710 Acquired absence of both cervix and uterus; Z90.89 Acquired absence of other organs; Z90.49 Acquired absence of other specified parts of digestive tract; Z98.890 Other specified postprocedural states; Z96.653 Presence of artificial knee joint, bilateral; Z95.5 Presence of coronary angioplasty implant and graft; F17.200 Nicotine dependence, unspecified, uncomplicated; X58.XXXD Exposure to other specified factors, subsequent encounter

== ENCOUNTER 2023-04-08 11:10 | Emergency (ER) | payer OTHER ==
[~2023-04-08] VITALS: Ht 149.8 cm; Wt 102.1 kg
[~2023-04-08 11:10] MED LIST changes: +CYCLOBENZAPRINE10 MG PO; +CYCLOBENZAPRINE5 M3 PO; +LOSARTAN POTASS50 M1 PO; +PANTOPRAZOLE SO20 MG PO; +SPIRIVA RESPIMAT4 GM INH; +VITAMIN D350 MCG PO; +XARELTO10 MG PO; +ZITHROMAX TRI-500 M1 PO
[2023-04-08 12:56] LABS: BILIRUBIN Negative (Negative); BLOOD Negative (Negative); CLARITY Clear (Clear); COLOR Yellow (Yellow); GLUCOSE Negative (Negative); KETONE Negative (Negative); LEUKO ESTERASE Negative (Negative); NITRITE Negative (Negative); PH 7.5 (4.5-8.0); SPECIFIC GRAVITY 1.015 (1.001-1.030); UROBILINOGEN 0.2 E.U./dl (0.0-1.0)
[2023-04-08 13:00] LABS: BASO % 0.4 % (0.0-1.0); EOS # 0.3 10*3/uL (0.0-0.4); EOS % 3.4 % (1.0-4.0); HEMATOCRIT 45.1 % (37.0-47.0); LYMPH # 1.6 10*3/uL (1.3-4.4); LYMPH % 21.4 % (27.0-41.0); MEAN CELL VOLUME 86.7 fl (81.0-99.0); MEAN CORPUSCULAR HGB 28.1 pg (27.0-31.0); MEAN CORPUSCULAR HGB CONC 32.4 g/dl (33.0-37.0); MEAN PLATELET VOLUME 8.8 fl (9.6-12.3); MONO # 0.6 10*3/uL (0.1-1.0); MONO % 8.3 % (3.0-9.0); NEUT # 4.9 10*3/uL (2.3-7.9); NEUT % 66.2 % (47.0-73.0); PLATELET COUNT AUTOMATED 154 10*3/uL (130-400); RED CELL DISTRI WIDTH 15.2 % (0-14.5); WHITE BLOOD COUNT 7.4 10*3/uL (4.8-10.8)
[2023-04-08 13:08] LABS: BACTERIA 2+; EPITHELIAL CELLS 0-2; RBC 0-2 rbc/hpf (0-2)
[2023-04-08 13:12] LABS: ACT PARTIAL THROMBO TIME 24.8 SECONDS (20.0-32.1)
[2023-04-08 13:22] LABS: ALKALINE PHOSPHATASE 89 U/L (46-116); BUN 9 mg/dl (9-23); CHLORIDE 104 mmol/L (98-107); POTASSIUM 4.3 mmol/L (3.4-5.1); SGPT/ALT 9 U/L (5-49); TOTAL PROTEIN 6.5 gm/dL (6.0-8.0)
== END 2023-04-08 17:00 | disposition home or self-care (01) ==
LOC: ED 11:10
PROVIDERS: Nurse Practitioner Family
DX: G47.00 Insomnia, unspecified (principal); T38.0X5A Adverse effect of glucocorticoids and synthetic analogues, initial encounter; J44.9 Chronic obstructive pulmonary disease, unspecified; R73.9 Hyperglycemia, unspecified; F32.A Depression, unspecified; K21.9 Gastro-esophageal reflux disease without esophagitis; Z98.890 Other specified postprocedural states; I12.9 Hypertensive chronic kidney disease with stage 1 through stage 4 chronic kidney disease, or unspecified chronic kidney disease; F41.9 Anxiety disorder, unspecified; N18.31 Chronic kidney disease, stage 3a; Z90.710 Acquired absence of both cervix and uterus; Z90.49 Acquired absence of other specified parts of digestive tract; Z90.89 Acquired absence of other organs; Z96.653 Presence of artificial knee joint, bilateral; Z95.5 Presence of coronary angioplasty implant and graft; F17.200 Nicotine dependence, unspecified, uncomplicated; Z79.899 Other long term (current) drug therapy; Y92.89 Other specified places as the place of occurrence of the external cause

== ENCOUNTER 2023-05-14 03:10 | Emergency (ER) | payer OTHER ==
[~2023-05-14] VITALS: Ht 149.8 cm; Wt 104.3 kg
== END 2023-05-14 06:19 | disposition home or self-care (01) ==
LOC: ED 03:10
DX: R51.9 Headache, unspecified (principal); I25.2 Old myocardial infarction; J44.9 Chronic obstructive pulmonary disease, unspecified; K21.9 Gastro-esophageal reflux disease without esophagitis; I10 Essential (primary) hypertension; F41.9 Anxiety disorder, unspecified; Z96.651 Presence of right artificial knee joint; F32.A Depression, unspecified; Z90.710 Acquired absence of both cervix and uterus; Z90.49 Acquired absence of other specified parts of digestive tract; Z90.89 Acquired absence of other organs; Z95.5 Presence of coronary angioplasty implant and graft; Z98.890 Other specified postprocedural states; F17.200 Nicotine dependence, unspecified, uncomplicated

== ENCOUNTER → 2023-12-16 | Outpatient (CLI) | payer OTHER | END | disposition home or self-care (01) | LOC: CT 11-14 10:00 | PROVIDERS: ATTEND Internal Medicine Critical Care Medicine | DX: R91.1 Solitary pulmonary nodule (principal); J44.9 Chronic obstructive pulmonary disease, unspecified; J45.20 Mild intermittent asthma, uncomplicated; J96.11 Chronic respiratory failure with hypoxia; Z99.81 Dependence on supplemental oxygen; G47.33 Obstructive sleep apnea (adult) (pediatric); Z68.41 Body mass index [BMI] 40.0-44.9, adult; Z87.891 Personal history of nicotine dependence; Z91.198 Patient's noncompliance with other medical treatment and regimen for other reason ==

== ENCOUNTER 2024-02-02 20:51 | Emergency (ER) | payer OTHER ==
[~2024-02-02] VITALS: Ht 149.8 cm; Wt 104.3 kg
[2024-02-02 22:19] LABS: BASO # 0.1 10*3/uL (0.0-0.1); BASO % 0.7 % (0.0-1.0); EOS # 0.3 10*3/uL (0.0-0.4); EOS % 3.5 % (1.0-4.0); HEMATOCRIT 41.1 % (37.0-47.0); LYMPH # 1.5 10*3/uL (1.3-4.4); LYMPH % 17.7 % (27.0-41.0); MEAN CELL VOLUME 85.6 fl (81.0-99.0); MEAN CORPUSCULAR HGB 26.7 pg (27.0-31.0); MEAN CORPUSCULAR HGB CONC 31.1 g/dl (33.0-37.0); MEAN PLATELET VOLUME 8.9 fl (9.6-12.3); MONO # 0.6 10*3/uL (0.1-1.0); MONO % 7.1 % (3.0-9.0); NEUT # 5.9 10*3/uL (2.3-7.9); NEUT % 70.6 % (47.0-73.0); PLATELET COUNT AUTOMATED 187 10*3/uL (130-400); WHITE BLOOD COUNT 8.3 10*3/uL (4.8-10.8)
[2024-02-02 22:40] LABS: BUN 11 mg/dl (9-23); CHLORIDE 103 mmol/L (98-107); POTASSIUM 4.1 mmol/L (3.4-5.1)
[2024-02-02] MEDS ORDERED: SODIUM CHLORIDE 0.9% 1,000 ML IV ONE (23:45)
[2024-02-02] MEDS ORDERED: diphenhydrAMINE hydrochloride 50 MG/ML VIAL IV ONE (23:45)
[2024-02-02] MEDS ORDERED: Ketorolac Tromethamine 30 MG/ML VIAL IV ONE (23:45)
[2024-02-02] MEDS ORDERED: Ondansetron Hydrochloride 4 MG/2 ML VIAL IV ONE (23:45)
== END 2024-02-03 01:40 | disposition home or self-care (01) ==
LOC: ED 20:51
PROVIDERS: Internal Medicine
DX: R51.9 Headache, unspecified (principal); B34.9 Viral infection, unspecified; R79.82 Elevated C-reactive protein (CRP); J44.9 Chronic obstructive pulmonary disease, unspecified; I25.2 Old myocardial infarction; K21.9 Gastro-esophageal reflux disease without esophagitis; F41.9 Anxiety disorder, unspecified; F32.A Depression, unspecified; N18.31 Chronic kidney disease, stage 3a; I12.9 Hypertensive chronic kidney disease with stage 1 through stage 4 chronic kidney disease, or unspecified chronic kidney disease; F17.200 Nicotine dependence, unspecified, uncomplicated; Z90.710 Acquired absence of both cervix and uterus; Z96.653 Presence of artificial knee joint, bilateral; Z90.89 Acquired absence of other organs; Z90.49 Acquired absence of other specified parts of digestive tract; Z98.890 Other specified postprocedural states; Z95.5 Presence of coronary angioplasty implant and graft

== ENCOUNTER 2024-08-24 14:30 | Emergency (ER) | payer OTHER ==
[~2024-08-24] VITALS: Ht 149.8 cm; Wt 106.6 kg
[2024-08-24] MEDS ORDERED: COZAAR50 M1 PO (14:42)
[2024-08-24 15:28] LABS: BASO % 0.6 % (0.0-1.0); EOS # 0.2 10*3/uL (0.0-0.4); HEMATOCRIT 39.3 % (37.0-47.0); MEAN CELL VOLUME 86.4 fl (81.0-99.0); MEAN CORPUSCULAR HGB 26.8 pg (27.0-31.0); MEAN PLATELET VOLUME 8.9 fl (9.6-12.3); MONO # 0.5 10*3/uL (0.1-1.0); MONO % 6.4 % (3.0-9.0); NEUT # 5.1 10*3/uL (2.3-7.9); NEUT % 71.9 % (47.0-73.0); PLATELET COUNT AUTOMATED 180 10*3/uL (130-400); RED BLOOD COUNT 4.55 10*6/uL (4.10-5.10); RED CELL DISTRI WIDTH 14.2 % (0-14.5); WHITE BLOOD COUNT 7.1 10*3/uL (4.8-10.8)
[2024-08-24] MEDS ORDERED: methylPREDNISolone sod succ 125 MG VIAL IV ONE (15:30)
[2024-08-24] MEDS ORDERED: Albuterol Sulf/Ipratropium 3 ML VIAL NEB ONE (15:30)
[2024-08-24 15:51] LABS: BUN 7 mg/dl (9-23); CHLORIDE 99 mmol/L (98-107)
[2024-08-24] MEDS ORDERED: MEDROL DOSEPAK4 MG PO (16:28)
[2024-08-24] MEDS ORDERED: AMOX-CLAV 875-1 EACH PO (16:28)
[2024-08-24] MEDS ORDERED: POTASSIUM CHLORIDE 20 MEQ TAB PO ONE (16:30)
== END 2024-08-24 16:42 | disposition home or self-care (01) ==
LOC: ED 14:30
PROVIDERS: Internal Medicine
DX: J44.1 Chronic obstructive pulmonary disease with (acute) exacerbation (principal); Z53.29 Procedure and treatment not carried out because of patient's decision for other reasons; E87.6 Hypokalemia; F17.200 Nicotine dependence, unspecified, uncomplicated; Z79.899 Other long term (current) drug therapy; Z79.82 Long term (current) use of aspirin; Z90.710 Acquired absence of both cervix and uterus; Z90.49 Acquired absence of other specified parts of digestive tract; Z90.89 Acquired absence of other organs; Z96.653 Presence of artificial knee joint, bilateral